=== PATIENT | female | born 1995 | race African-American/Black ===

== ENCOUNTER 2018-03-04 08:33 | Emergency (ER) | payer BC ==
[~2018-03-04] VITALS: Ht 167.6 cm; Wt 72.3 kg
[2018-03-04 08:43] VITALS: Ht 167.6 cm; Wt 72.3 kg
[2018-03-04 09:21] LABS: microscopic required? YES; urine erythrocyte NEGATIVE (NEGATIVE)
[2018-03-04 09:28] LABS: BASOPHIL % 0.4 % (0-2); PLATELET COUNT 191 x10^3mcL (130-400)
[2018-03-04 09:36] LABS: ALBUMIN 3.7 g/dL (3.4-5.0); ALKALINE PHOSPHATASE 51 U/L (46-116); ALT/SGPT 19 U/L (14-59); AST/SGOT 15 U/L (15-37); BILIRUBIN TOTAL 0.26 mg/dL (0.20-1.00); CALCIUM 8.7 mg/dL (8.5-10.1); CARBON DIOXIDE 25.1 mmol/L (21-32); CHLORIDE SERUM 104 mmol/L (98-107); CREATININE SERUM 0.7 mg/dL (0.6-1.0); GFR1 > 60 mL/min; GLUCOSE SERUM 86 mg/dL (74-106); POTASSIUM SERUM 4.1 mmol/L (3.5-5.1); SODIUM SERUM 137 mmol/L (136-145); TOTAL PROTEIN, SERUM 7.2 g/dL (6.4-8.2)
[2018-03-04 10:47] LABS: AMPHETAMINE QUAL UR NONE DETECTED (See below)
[2018-03-04 12:17] VITALS: BP 110/62
== END 2018-03-04 12:17 | disposition home or self-care (01) ==
LOC: ED 08:33
PROVIDERS: Emergency Medicine
DX: R44.0 Auditory hallucinations (principal); F22 Delusional disorders; R51 Headache
CPT/HCPCS: 36415; G0480

== ENCOUNTER 2019-05-06 13:01 | Emergency (ER) | payer SELFPAY ==
[~2019-05-06] VITALS: Ht 167.6 cm; Wt 70.8 kg
[2019-05-06 13:23] VITALS: BP 96/55; Ht 167.6 cm; Wt 70.8 kg
== END 2019-05-06 15:06 | disposition left against medical advice (07) ==
LOC: ED 13:01
DX: Z53.21 Procedure and treatment not carried out due to patient leaving prior to being seen by health care provider (principal)

== ENCOUNTER 2019-05-06 17:03 | Emergency (ER) | payer SELFPAY ==
[~2019-05-06] VITALS: Ht 167.6 cm; Wt 74.4 kg
[2019-05-06 17:16] VITALS: Ht 167.6 cm; Wt 74.4 kg
[2019-05-06 19:00] VITALS: BP 131/70
== END 2019-05-06 19:00 | disposition home or self-care (01) ==
LOC: ED 17:03
DX: T39.315A Adverse effect of propionic acid derivatives, initial encounter (principal); Z88.6 Allergy status to analgesic agent; M54.5 Low back pain; V49.9XXA Car occupant (driver) (passenger) injured in unspecified traffic accident, initial encounter; Y93.89 Activity, other specified; Y92.89 Other specified places as the place of occurrence of the external cause; Y99.8 Other external cause status